=== PATIENT | female | born 1960 | race Caucasian/White ===

== ENCOUNTER 2018-02-27 22:41 | Emergency (ER) | payer OTHER ==
[~2018-02-27] VITALS: Ht 170.2 cm; Wt 56.7 kg
[2018-02-27 22:49] VITALS: BP 121/82
[2018-02-27] MEDS ORDERED: TDAP [DIPH/PERTUSSIS/TET] 0.5 ML VIAL IM ONE ×2 (23:07→23:30)
[2018-02-27] MEDS ORDERED: AMOX/CLAVULANATE 875 MG TABLET ONE (23:07)
[2018-02-27] MEDS ORDERED: AMOX/CLAVULANATE 875 MG TABLET PO ONE (23:30)
[2018-02-27] MEDS ORDERED: BACI/NEOM/POLY B OINT PKT 1 UDPKT PACKET TP ONE (23:30)
== END 2018-02-27 23:53 | disposition home or self-care (01) ==
LOC: ER 22:48
DX: S01.25XA Open bite of nose, initial encounter (principal); E03.9 Hypothyroidism, unspecified; W54.0XXA Bitten by dog, initial encounter; Y93.K9 Activity, other involving animal care; Y92.89 Other specified places as the place of occurrence of the external cause; Y99.8 Other external cause status
CPT/HCPCS: 90471; 90715; 99283; A4606; A6402; Z7610

== ENCOUNTER 2020-10-10 10:28 | Outpatient (CLI) | payer BC | END 2020-10-10 23:59 | disposition home or self-care (01) | LOC: RAD 10:28 | DX: J98.4 Other disorders of lung (principal); L29.9 Pruritus, unspecified | CPT/HCPCS: 71046 ==